=== PATIENT | male | born 2000 ===

== ENCOUNTER 2022-07-28 00:45 | Inpatient (IN) | payer MEDICAID, OTHER ==
[2022-07-28] MEDS ORDERED: MAG HYDROX/AL HYDROX/SIMETH 30 ML CUP PO PRN (00:59)
[2022-07-28] MEDS ORDERED: MAGNESIUM HYDROXIDE 2,400 MG/10 ML CUP PO PRN (00:59)
[2022-07-28] MEDS ORDERED: ACETAMINOPHEN TAB 325 MG TAB PO PRN (00:59)
[2022-07-28] MEDS ORDERED: HALOPERIDOL LACTATE 5 MG/ML 1 ML VIAL IM PRN (00:59)
[2022-07-28] MEDS ORDERED: haloperidoL 5 MG TAB PO PRN (01:03)
[2022-07-28] MEDS ORDERED: LORazepam 2 MG/ML INJ IM PRN (01:03)
[2022-07-28] MEDS: NICOTINE 14MG/24HR PATCH TRANSDERM SCH (09:21)
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
[2022-07-28 13:11] LABS: Basophils % (A) 0 %; Eosinophils # (A) 0.1 k/uL (0-0.7); Eosinophils % (A) 2 %; HCT 45.1 % (39.0-53.0); HGB 15.9 gm/dL (13.0-17.5); Lymphocytes # (A) 2.2 k/uL (1.0-4.8); Lymphocytes % (A) 34 %; MCH 30.6 pg (25.0-35.0); MCHC 35.2 g/dL (31.0-37.0); MCV 86.9 fL (80.0-100.0); Mean Platelet Volume 7.5; Monocytes # (A) 0.5 k/uL (0-1.0); Monocytes % (A) 8 %; Neutrophils # (A) 3.7 k/uL (1.3-7.7); Neutrophils % (A) 55 %; Platelet Count 275 k/uL (150-450); RBC 5.19 m/uL (4.30-5.90); RDW 12.1 % (11.5-15.5); WBC 6.7 k/uL (4.0-11.0)
[2022-07-28 13:24] LABS: ALT 31 U/L (4-49); AST 46 U/L (17-59); African American GFR (CKD) >90 (>60 ml/min/1.73 sqM); Albumin 4.4 g/dL (3.5-5.0); Alkaline Phosphatase 52 U/L (38-126); Anion Gap 6 mmol/L; Bilirubin,Unconjugated 0.4 mg/dL (0.0-1.1); Blood Urea Nitrogen 14 mg/dL (9-20); Calcium 9.6 mg/dL (8.4-10.2); Carbon Dioxide 29 mmol/L (22-30); Chloride 108 mmol/L (98-107); Non-African American GFR(CKD) >90 (>60 ml/min/1.73 sqM); Potassium 4.1 mmol/L (3.5-5.1); Sodium 143 mmol/L (137-145); Total Bilirubin 0.4 mg/dL (0.2-1.3); Total Protein 7.1 g/dL (6.3-8.2)
[2022-07-28 13:28] LABS: Glucose 48 mg/dL (74-99)
[2022-07-28 13:35] LABS: Glucose,Whole Blood 143 mg/dL (70-110)
[2022-07-28] MEDS ORDERED: QUEtiapine 100 MG TAB PO SCH (21:00)
[2022-07-28] MEDS: lamoTRIgine 25 MG TAB PO SCH (21:46)
[2022-07-28 22:11] LABS: Chol/HDL Ratio 2.63 Ratio; LDL Cholesterol,Calculated 68.4 mg/dL (0.0-131.0); VLDL Calculation 12.68 mg/dL (5.00-40.00)
[2022-07-29] MEDS: lamoTRIgine 25 MG TAB PO SCH ×2 (09:14→19:49)
[2022-07-29] MEDS: NICOTINE 14MG/24HR PATCH TRANSDERM SCH (09:48)
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
[2022-07-29] MEDS ORDERED: HALOPERIDOL LACTATE 5 MG/ML 1 ML VIAL IM ONE (14:59)
[2022-07-29] MEDS ORDERED: LORazepam 2 MG/ML INJ IM ONE (15:00)
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
[2022-07-29 15:11] VITALS: RESP 16
[2022-07-29] MEDS: LORazepam 1 MG TAB PO PRN (19:51)
[2022-07-29] MEDS: PRAZOSIN 1 MG CAP PO SCH (19:51)
[2022-07-29] MEDS ORDERED: QUEtiapine 50 MG TAB PO SCH (21:00)
--- NOTE | 2022-07-30 00:16 | P.PN ---
Progress Note - Text Progress Note Date: 07/29/22 Attempted to see the patient at 2100 on 07/29 in the mental health unit. Informed by the mental health unit RN that the patient was combative and had been sedated and was inappropriate for evaluation at that time.
[2022-07-30] MEDS: lamoTRIgine 25 MG TAB PO SCH (10:11)
[2022-07-30] MEDS: NICOTINE 14MG/24HR PATCH TRANSDERM SCH (10:12)
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
[2022-07-30] MEDS: QUEtiapine 100 MG TAB PO SCH (20:51)
[2022-07-30] MEDS: lamoTRIgine 100 MG TAB PO SCH (20:52)
[2022-07-30] MEDS: LORazepam 1 MG TAB PO PRN (20:52)
[2022-07-30] MEDS: PRAZOSIN 1 MG CAP PO SCH (20:52)
--- NOTE | 2022-07-31 04:57 | P.CONS ---
History of Present Illness - Reason for Consult Consult date: 07/31/22 - History of Present Illness Patient is a 22-year-old male with no known PMH who was transferred from [facility] where the patient had been admitted for psychosis with jeremiah. Patient reports that he has not been using any illicit substances nor has he been drinking alcohol or smoking cigarettes. He denied any physical complaints at the time of interview. Denies experiencing chest discomfort, s hortness of breath, fever, chills, cough, nausea, vomiting, abdominal pain, diarrhea. Review of systems: Pertinent positives and negatives as discussed in HPI, a complete review of systems was performed and all other systems are negative. Physical examination: General: non toxic, no distress, appears at stated age, normal weight Derm: no unusual rashes/lesions, no unusual ecchymoses, warm, dry Head: atraumatic, normocephalic, symmetric Eyes: EOMI, no lid lag, anicteric sclera ENT: Nose and ears atraumatic, no thrush, no pharyngeal erythema Neck: trachea midline, supple Mouth: no lip lesion, mucus membranes moist Cardiovascular: S1S2 reg, no murmur, no edema Lungs: CTA bilateral, no rhonchi, no rales , no accessory muscle use Abdominal: soft, nontender to palpation, no guarding Ext: no gross muscle atrophy, no contractures, Neuro: No gross focal neuro deficits noted Psych: Alert, oriented, appropriate affect Assessment: Hypoglycemia Psychosis Imaging: None performed Data Review: Laboratory evaluation reviewed with glucose 48 and chloride 108 Plan: Monitor patient's blood glucose levels Defer management of psychosis to primary psychiatry service Thank you for allowing us to participate in the care of this patient. We will follow peripherally. Do not hesitate to contact us with questions. Someone can be reached from the [facility] hospitalist group at all hours of the day at [phone]. Past Medical History Past Medical History: No Reported History History of Any Multi-Drug Resistant Organisms: None Reported Smoking Status: Vaper - Past Family History Father Family Medical History: Chest Pain / Angina Medications and Allergies Allergies Allergy/AdvReac Type Severity Reaction Status Date / Time No Known Allergies Allergy Verified 07/28/22 00:58 Physical Exam Vitals: Vital Signs Temp Pulse Resp BP Pulse Ox 07/30/22 06:29 97.8 F 103 H 16 146/74 99 Results CBC & Chem 7: 07/28/22 12:33 07/28/22 12:33
[2022-07-31 07:58] LABS: Glucose,Whole Blood 96 mg/dL (70-110)
[2022-07-31] MEDS: NICOTINE 14MG/24HR PATCH TRANSDERM SCH (08:28)
[2022-07-31] MEDS ORDERED: lamoTRIgine 100 MG TAB PO SCH (09:00)
--- NOTE | 2022-07-31 10:15 | P.PN ---
Subjective Progress Note Date: 07/31/22 Principal diagnosis: Bipolar 1 disorder, manic episode Posttraumatic stress disorder Cannabis use disorder Nicotine dependence Subjective: The patient says he didn't sleep well last few somewhat calmer that. However he got on a full call with his sister. She lets him rent a small apartment on her property. He got angry and broke. So she wants him to go stay somewhere else, like a group. He says that he would rather sleep on the street then in a alf. He feels that if he could have O1 month to save up money to get his own place that that would work. However he got agitated when she said he could not stay there thus proving to her that she was right in setting limits. We discussed at great length how his good goals are always undermined by his bad technique. The staff heard him getting somewhat upset on the phone and offered him some Ativan pointing out that that would be helpful to avoid needing the shot later today. He said that he wanted try really hard to control his anger without the Ativan. He points out that he is doing better today but he is not sure if his good night sleep and better control our because he had a shot in the afternoon and then the increase Seroquel at night. He wanted to wait and see if he did well today and if he is able control himself stuck with the 300 of Seroquel otherwise he will have the staff call me and we will increase the Seroquel at night probably to 500. Objective: The patient is alert cooperative calm. He did not seem at all threatening, had a good sense of humor, was pleasant he was oriented to person place time and circumstance, psychomotor activity is normal, self-care is good, eye contact good, response times are not pressured, when discussing what it was about his conversation with his sister and he started focusing on the issue you could see his mind clamping down on the what he will not do rather than then moving on to what is his plan and what could he do. He really needs to get into counseling because his mind needs to be more comfortable with thinking things through and balance Assessment he obviously fluctuates in his function. Plan: Increase his prazosin and probably increase the Seroquel if he has trouble with moods later today. I will also give all the Lamictal at night so he is taking the prazosin Seroquel and Lamictal at the same time for increased compliance. His problem does not seem so much to be depression as getting triggered to easily so I'm not going to increase the Lamictal at this time. Objective - Vital Signs Vital signs: Vital Signs Temp 97.8 F 07/30/22 06:29 Pulse 103 H 07/30/22 06:29 Resp 16 07/30/22 06:29 BP 146/74 07/30/22 06:29 Pulse Ox 99 07/30/22 06:29 FiO2 Intake & Output 07/30/22 07/31/22 07/31/22 18:59 06:59 18:59 Weight 75.3 kg - Labs CBC & Chem 7: 07/28/22 12:33 07/28/22 12:33
[2022-07-31 12:40] LABS: Glucose,Whole Blood 82 mg/dL (70-110)
[2022-07-31 17:50] LABS: Glucose,Whole Blood 77 mg/dL (70-110)
[2022-07-31] MEDS: PRAZOSIN 1 MG CAP PO SCH (20:24)
[2022-07-31] MEDS: QUEtiapine 100 MG TAB PO SCH (20:24)
[2022-07-31] MEDS: LORazepam 1 MG TAB PO PRN (20:25)
[2022-07-31] MEDS: lamoTRIgine 100 MG TAB PO SCH (20:25)
[2022-08-01 07:42] LABS: Glucose,Whole Blood 94 mg/dL (70-110)
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
[2022-08-01 12:47] LABS: Glucose,Whole Blood 93 mg/dL (70-110)
[2022-08-01 17:30] LABS: Glucose,Whole Blood 90 mg/dL (70-110)
[2022-08-01] MEDS: PRAZOSIN 1 MG CAP PO SCH (20:30)
[2022-08-01] MEDS: lamoTRIgine 100 MG TAB PO SCH (20:30)
[2022-08-01] MEDS: QUEtiapine 100 MG TAB PO SCH (20:31)
[2022-08-02 01:16] VITALS: BP 128/61; PULSE 86; TEMP 97.9
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
== END 2022-08-02 13:16 | disposition home or self-care (01) | DRG 885 ==
LOC: 3MHU 04:51
PROVIDERS: ADMIT Psychiatry & Neurology Psychiatry; ATTEND Psychiatry & Neurology Psychiatry
DX: F31.2 Bipolar disorder, current episode manic severe with psychotic features (principal); F43.10 Post-traumatic stress disorder, unspecified; Z78.1 Physical restraint status; Z28.311 Partially vaccinated for COVID-19; Z28.21 Immunization not carried out because of patient refusal; F17.290 Nicotine dependence, other tobacco product, uncomplicated; E16.2 Hypoglycemia, unspecified; F12.10 Cannabis abuse, uncomplicated; F60.89 Other specific personality disorders; Z79.899 Other long term (current) drug therapy; Z91.51 Personal history of suicidal behavior; Z71.89 Other specified counseling
CPT/HCPCS: 80053; 80061; 82248; 83036; 84443; 85025